=== PATIENT | male | born 1985 | race African-American/Black ===

== ENCOUNTER 2016-06-19 17:07 | Emergency (ER) | payer MEDICAID, MEDICARE, OTHER ==
[~2016-06-19] VITALS: Ht 193 cm; Wt 124.5 kg
[~2016-06-19 17:07] MED LIST: NORC7.5T PO; XARE10TA PO; Z.0.NO CURRENT MEDS
[2016-06-19 17:11] VITALS: BP 135/86; PULSE 97; RESP 16; TEMP 98.2; O2SAT 95
[2016-06-19 18:17] LABS: AUTOMATED NEUTROPHIL # 1.6 TH/MM3 (1.8-7.7); BASOPHIL # 0.1 TH/MM3 (0-0.2); BASOPHIL % 1.3 % (0.0-2.0); EOSINOPHIL # 0.2 TH/MM3 (0-0.4); EOSINOPHIL % 5.4 % (0.0-4.0); HEMATOCRIT 40.3 % (39.0-51.0); HEMO FLAGS DIFF FINAL; LYMPHOCYTE # 1.9 TH/MM3 (1.0-4.8); MEAN CELL VOLUME 83.6 FL (80.0-100.0); MEAN CORPUSCULAR HEMOGLOBIN 27.3 PG (27.0-34.0); MEAN CORPUSCULAR HGB CONC 32.7 % (32.0-36.0); MONO % 12.1 % (0.0-8.0); NEUT % 37.2 % (16.0-70.0); PLATELET COUNT 175 TH/MM3 (150-450); RED BLOOD COUNT 4.82 MIL/MM3 (4.50-5.90); RED CELL DISTRIBUTION WIDTH 14.3 % (11.6-17.2); WHITE BLOOD COUNT 4.3 TH/MM3 (4.0-11.0)
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
[2016-06-19 18:46] LABS: ALKALINE PHOSPHATASE 60 U/L (45-117); ALT (GPT) 22 U/L (12-78); ANION GAP 7 MEQ/L (5-15); AST (GOT) 16 U/L (15-37); BLOOD UREA NITROGEN 11 MG/DL (7-18); CHLORIDE 106 MEQ/L (98-107); GLOMERULAR FILTRATION RATE 88 ML/MIN (>89); SODIUM (NA) 139 MEQ/L (136-145); TOTAL BILIRUBIN ADULT 0.2 MG/DL (0.2-1.0)
[2016-06-19 18:49] LABS: POTASSIUM 3.8 MEQ/L (3.5-5.1)
--- NOTE | 2016-06-20 11:48 | EKG ---
Date Performed: 06/19/2016 Time Performed: 19:18:48 PTAGE: 30 years EKG: Sinus rhythm NORMAL ECG NO PREVIOUS TRACING DOCTOR: Ba Rojas Interpretating Date/Time 06/20/2016 11:44:33
== END 2016-06-19 20:25 | disposition home or self-care (01) ==
LOC: NEPC 17:07
DX: R42 Dizziness and giddiness (principal); Z87.820 Personal history of traumatic brain injury; Z87.891 Personal history of nicotine dependence
CPT/HCPCS: 80053; 85025; 93005

== ENCOUNTER 2017-03-04 19:22 | Emergency (ER) | payer MEDICARE ==
[~2017-03-04] VITALS: Ht 193 cm; Wt 125.0 kg
[2017-03-04 19:23] VITALS: BP 157/86; PULSE 106; RESP 15; TEMP 99.2; O2SAT 97
[2017-03-04] MEDS ORDERED: KETOROLAC TROMETHAMINE 60 MG/2 ML (IM) VIAL IM ONE (20:00)
[2017-03-04] MEDS ORDERED: NAPR500T PO (20:29)
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
--- NOTE | 2017-03-04 20:30 | RADRPT ---
EXAM DATE/TIME: 03/04/2017 20:04 [facility] COMPARISON: No previous studies available for comparison. INDICATIONS : Pain post fracture- states unable to heal from fracture. MEDICAL HISTORY : Arthritis. SURGICAL HISTORY : Lower leg surgery. ENCOUNTER: Initial ACUITY: >1 year PAIN SCORE: 7/10 LOCATION: Right Lower leg FINDINGS: Two view examination of the right tibia demonstrates intramedullary octavio fixation of the tibia across remote healed fracture distally. Healed fractures proximal and distal fibula. No dislocation. CONCLUSION: 1. Fixation of right tibial fracture. Healed fractures right fibula. Jeffrey Hernandez MD on March 04, 2017 at 20:27 Board Certified Radiologist. This report was verified electronically.
== END 2017-03-04 20:44 | disposition home or self-care (01) ==
LOC: NEPD 19:22
DX: M79.604 Pain in right leg (principal); M25.512 Pain in left shoulder
CPT/HCPCS: 73590; 96372; 99284; J1885

== ENCOUNTER 2017-09-18 23:35 | Emergency (ER) | payer MEDICARE ==
[~2017-09-18] VITALS: Ht 193 cm; Wt 130.0 kg
[~2017-09-18 23:35] MED LIST changes: +NAPR500T2 PO; -NORC7.5T PO; -XARE10TA PO; -Z.0.NO CURRENT MEDS
[2017-09-18 23:39] VITALS: BP 131/70; PULSE 110; RESP 16; TEMP 98.2; O2SAT 97
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
== END 2017-09-19 02:26 | disposition left against medical advice (07) ==
LOC: NEPD 23:35
DX: M79.661 Pain in right lower leg (principal)
CPT/HCPCS: 99281